=== PATIENT | male | born 1985 | race Caucasian/White ===

== ENCOUNTER 2016-05-12 18:10 | Emergency (ER) | payer SELFPAY ==
[~2016-05-12 18:10] MED LIST: ALBUTEROL17 GM INH; AMOXICILLIN PO; ANTIBIOTIC; BACTRIM DS TABL1 TA1 PO; CIPRO PO; DELSYM30 MG/5 M1 PO; LORATADINE PO; MEDROL PO; ZANTAC PO; ZITHROMAX PO; ZITHROMAX1 G/PKT PO; ZOFRAN PO
== END 2016-05-12 19:36 | disposition home or self-care (01) ==
LOC: SED 18:10
DX: T15.11XA Foreign body in conjunctival sac, right eye, initial encounter (principal); F17.210 Nicotine dependence, cigarettes, uncomplicated; W45.8XXA Other foreign body or object entering through skin, initial encounter
CPT/HCPCS: 67938; 90471; 90715; 99283